=== PATIENT | male | born 1965 | race Caucasian/White ===

== ENCOUNTER → 2023-09-14 11:45 | Outpatient (REF) | payer OTHER, SELFPAY | LOC: HWRAD 11:45 | PROVIDERS: ATTENDING PHYSICIAN Physician Assistant Medical | DX: R10.33 Periumbilical pain (principal); R63.4 Abnormal weight loss; R10.9 Unspecified abdominal pain | CPT/HCPCS: 74177; Q9967 ==

== ENCOUNTER → 2023-10-17 06:28 | Day surgery (SDC) | payer OTHER, SELFPAY | LOC: GI 06:28 | PROVIDERS: ATTENDING PHYSICIAN Internal Medicine Gastroenterology; FAMILY PHYSICIAN Family Medicine | DX: R93.3 Abnormal findings on diagnostic imaging of other parts of digestive tract (principal); K64.8 Other hemorrhoids; K57.30 Diverticulosis of large intestine without perforation or abscess without bleeding; K63.3 Ulcer of intestine; K52.9 Noninfective gastroenteritis and colitis, unspecified; D12.4 Benign neoplasm of descending colon; K63.5 Polyp of colon; R10.9 Unspecified abdominal pain; K21.00 Gastro-esophageal reflux disease with esophagitis, without bleeding; K29.70 Gastritis, unspecified, without bleeding | CPT/HCPCS: 45385; 45380; 43239; 88305; 88342 ==

== ENCOUNTER 2024-02-08 05:43 | Day surgery (SDC) | payer OTHER, SELFPAY ==
[2024-01-19 07:22] VITALS: BMI 28.6
[2024-01-19 08:58] LABS: Hemoglobin 15.1 g/dL (13.0-18.0); Mean Corp Hgb Conc. 35.1 g/dL (33.0-37.0); Mean Corpuscular Hgb 31.9 pg (27.0-31.0); Mean Corpuscular Volume 90.7 fL (80.0-94.0); Mean Platelet Volume 9.2 fL (7.4-10.4); Platelet Count 289 10^3/uL (130-400); Red Blood Cell Count 4.74 10^6/uL (4.70-6.10); Red Cell Dist. Width 12.7 % (11.5-14.5); White Blood Cell Count 5.8 10^3/uL (4.8-10.8)
[2024-01-19 09:26] LABS: ALT (SGPT) 34 U/L (0-50); AST (SGOT) 32 U/L (17-59); Albumin 4.5 g/dl (3.5-5.0); Alkaline Phosphatase 76 U/L (38-126); Blood Urea Nitrogen 13 mg/dl (9-20); Calcium 9.6 mg/dl (8.4-10.2); Carbon Dioxide 22 mmol/L (22-30); Chloride 102 mmol/L (98-107); Estimated Creatinine Clearance 101 ml/min; Glucose 85 mg/dl (70-99); Potassium 4.6 mmol/L (3.5-5.1); Sodium 141 mmol/L (135-145); Total Bilirubin 0.5 mg/dl (0.2-1.3); Total Protein 7.1 g/dl (6.3-8.2); eGFR > 60.00
[2024-01-19 10:00] LABS: Glycohemoglobin (HgbA1c) 5.4 % (4.0-5.6)
--- NOTE | 2024-01-26 10:23 | VNURNOTE ---
Patient is scheduled for an elective L TKR on 02/08/24- he is a same day patient. Spoke with patient prior to surgery. Introduced role of [facility]N liaison.
Patient reports that he lives with his son in a MULTI story home. His son works [employer] but will be available day of surgery and 3 days post op.
There are 2 steps to enter the porch then 11 HANY floor he'll be staying on.
He currently functions independently.
DME he has: rolling walker, raised toilet seat.
DME he will obtain: cane, hospital bed through [employer] (patient paying out of pocket per his preference)
He has never had [facility]N services.
PCP is Dr Walkre/ Dr Aurleia Frazier
Discussed [facility] joint protocol/orthopedic program and post surgical plans.
Reviewed that he will have VN services initially and will then start outpatient PT.
Patient selects VN for his home care needs and will go to for outpatient PT. Outpt PT scheduled for 02/11
Patient is in agreement with plan and states that his son will be home with him. Advised patient to bring RW with him day of surgery.
Referral placed in [facility]
Plan: [facility] joint protocol then outpt PT at
[2024-02-01 08:44] VITALS: BMI 28.6
[2024-02-08] VITALS (11 sets, daily range): BP systolic 109–149; BP diastolic 73–94; PULSE 75; O2SAT 100; BMI 28.6
[2024-02-08] MEDS: CELEBREX 200 MG PO (06:34)
[2024-02-08] MEDS: TYLENOL 650 MG PO (06:34)
[2024-02-08] MEDS: NORMOSOL-R/PLASMALYTE-A 1000 IV (10:25)
[2024-02-08] MEDS: ROXICODONE 5 MG PO (12:52)
== END 2024-02-08 13:25 | disposition home health service (06) ==
LOC: SDS 05:43
PROVIDERS: ATTENDING PHYSICIAN Orthopaedic Surgery; FAMILY PHYSICIAN Family Medicine
DX: M17.12 Unilateral primary osteoarthritis, left knee (principal)
CPT/HCPCS: 27447; C1776; 36415; 73560; 80053; 83036; 85027; 87070; 93005; 97162

== ENCOUNTER 2024-02-14 06:19 | Outpatient (RCR) | payer OTHER, SELFPAY | END 2024-02-14 23:59 | disposition home or self-care (01) | LOC: RPT 06:19 | PROVIDERS: ATTENDING PHYSICIAN Orthopaedic Surgery; FAMILY PHYSICIAN Family Medicine | DX: Z47.1 Aftercare following joint replacement surgery (principal); Z96.652 Presence of left artificial knee joint; Z73.6 Limitation of activities due to disability | CPT/HCPCS: 88305; 97010; 97110; 97140; 97161 ==

== ENCOUNTER → 2024-02-16 12:00 | Outpatient (REF) | payer OTHER, SELFPAY | LOC: DHSLP 12:00 | PROVIDERS: ATTENDING PHYSICIAN Family Medicine | DX: G47.33 Obstructive sleep apnea (adult) (pediatric) (principal) | CPT/HCPCS: 95800 ==

== ENCOUNTER → 2024-02-27 10:10 | Outpatient (REF) | payer OTHER, SELFPAY | LOC: HWRAD 10:10 | PROVIDERS: ATTENDING PHYSICIAN Family Medicine | DX: Z87.891 Personal history of nicotine dependence (principal) | CPT/HCPCS: 71271 ==

== ENCOUNTER → 2024-03-05 07:13 | Outpatient (REF) | payer OTHER, SELFPAY | LOC: RCS 07:13 | PROVIDERS: ATTENDING PHYSICIAN Family Medicine | DX: I10 Essential (primary) hypertension (principal); I50.9 Heart failure, unspecified | CPT/HCPCS: 93306 ==

== ENCOUNTER 2024-03-13 07:48 | Outpatient (RCR) | payer OTHER, SELFPAY | END 2024-03-13 23:59 | disposition home or self-care (01) | LOC: RPT 07:48 | PROVIDERS: ATTENDING PHYSICIAN Orthopaedic Surgery; FAMILY PHYSICIAN Family Medicine | DX: Z47.1 Aftercare following joint replacement surgery (principal); Z73.6 Limitation of activities due to disability; R26.2 Difficulty in walking, not elsewhere classified; M62.81 Muscle weakness (generalized); Z96.652 Presence of left artificial knee joint | CPT/HCPCS: 97010; 97110; 97140 ==

== ENCOUNTER 2024-04-08 07:23 | Outpatient (RCR) | payer OTHER, SELFPAY | END 2024-04-08 23:59 | disposition home or self-care (01) | LOC: RPT 07:23 | PROVIDERS: ATTENDING PHYSICIAN Orthopaedic Surgery; FAMILY PHYSICIAN Family Medicine | DX: Z47.1 Aftercare following joint replacement surgery (principal); Z73.6 Limitation of activities due to disability; R26.2 Difficulty in walking, not elsewhere classified; M62.81 Muscle weakness (generalized); Z96.652 Presence of left artificial knee joint | CPT/HCPCS: 97010; 97110; 97112; 97140; 97530 ==

== ENCOUNTER 2024-04-11 06:04 | Day surgery (SDC) | payer OTHER, SELFPAY ==
[2024-04-11] VITALS (15 sets, daily range): BP systolic 112–147; BP diastolic 55–95
[2024-04-11] MEDS: NORMOSOL-R/PLASMALYTE-A 1000 IV (06:44)
[2024-04-11] MEDS: TYLENOL 1000 MG PO (06:45)
--- NOTE | 2024-04-11 07:23 | W.SUR.PREOP ---
Pre-Operative Surgical Note
-
I have examined this patient prior to the performance of the scheduled procedure.
The patient's condition is unchanged from the time of the current History and
Physical and the patient is able to undergo the scheduled procedure.
--- NOTE | 2024-04-11 07:24 | HP.FOC2 ---
Focused History & Physical
Chief Complaint
HPI:
Chief Complaint: Recurrent right inguinal hernia
HPI / Indication for Planned Procedure: Robotic recurrent right inguinal hernia repair with mesh, possible left, possible open umbilical hernia repair with mesh.
Relevant Past Medical History: Negative
Relevant Social History: Negative
Relevant Family History: Negative
Relevant Past Surgical History: Positive for (Open right inguinal hernia repair)
Review of Systems
Review of Pertinent Systems: All Systems Negative
Medication
See Medication form for detailed medications: Yes
Medication List (including Herbals & OTC):
atorvastatin 10 mg tablet 20 mg PO DAILY 01/07/15
fluticasone fur. 200 mcg-umeclid 62.5 mcg-vilant 25 mcg inhalat.powder (Trelegy Ellipta) 1 inh inhalation DAILY 09/19/22
mecobalamin (vitamin B12) 1,000 mcg chewable tablet 1,000 mcg PO DAILY 02/01/24
oxycodone 5 mg tablet 5 - 10 mg (1 - 2 x 5 mg) PO Q6H PRN moderate-severe pain #30 tabs 02/08/24
verapamil 360 mg 24 hr capsule,extended release 360 mg PO DAILY #1 cap 02/08/24
acetaminophen 500 mg tablet 1,000 mg PO PRN PRN discomfort 04/03/24
albuterol sulfate 90 mcg/actuation aerosol inhaler 1 puff inhalation DAILY 04/03/24
aspirin 81 mg tablet,delayed release 81 mg PO DAILY 04/03/24
Medications Reviewed: Yes
Allergies and Reactions
Patient has Allergies: No
Noted Allergies and Reactions:
Allergy/AdvReac Type Severity Reaction Status Date / Time
No Known Allergies Allergy Verified 04/11/24 06:25
Pertinent Physical Exam
All Other Systems: Negative
Head/Neck: Normal
Diagnosis / Assessment
Recurrent right inguinal hernia. Umbilical hernia.
Plan / Procedure
Robotic recurrent right inguinal hernia repair with mesh, possible left, possible open umbilical hernia repair with mesh.
Anesthesia/Sedation to be done by Anesthesia Provider: Yes
--- NOTE | 2024-04-11 10:04 | W.IMMPOSTOP ---
Surgical Immed Post Op Note
-
Primary Surgeon: Miquel Valero MD
Assisting Surgeon: None
Pre-op Diagnosis: Recurrent right inguinal hernia, umbilical hernia
Post-op Diagnosis: Recurrent right femoral hernia, umbilical hernia
Procedure Performed:
1. Robotic recurrent right femoral hernia repair with mesh.
2. Robotic umbilical hernia repair with mesh (MARCOS approach)
Anesthesia Type: General
Specimen / Cultures: None
Estimated Blood Loss: 1 cc
Complications: [None]
Operative Findings: Femoral defect containing a large amount of preperitoneal fat reduced. There was a small weakness in the direct and indirect spaces as well. After achieving the critical view of the MPO the space was reinforced with a large
right Bard 3D max mid weight uncoated polypropylene mesh. We then turned our attention to the umbilical hernia which was a roughly 1 cm defect containing preperitoneal fat. The defect was closed with a 0 V-Loc 180 suture in the repair was
reinforced with a 6 x 6 cm Bard soft uncoated polypropylene mesh that was secured in the MARCOS space and excluded from the abdominal viscera.
--- NOTE | 2024-04-11 10:07 | OR.RPT ---
Operative Report
Operative Report
Patient Name: Tommie Koo
: 1965
Date of Operation: 04/11/2024
Pre-op Diagnosis: Recurrent right inguinal hernia, umbilical hernia
Post-op Diagnosis: Recurrent right femoral hernia, umbilical hernia
Procedure Performed:
1. Robotic recurrent right femoral hernia repair with mesh.
2. Robotic umbilical hernia repair with mesh (MARCOS approach)
Surgeon(s):
Dr. Valero
Poker Room Manager(s):
EDUARDO Chow
Anesthesia Type: General
Estimated Blood Loss: 3 cc
Urine Output: None
Drains/Lines/Implants: Large 3D Max Bard mid weight uncoated polypropylene mesh
Specimens: None
Indication for surgery: The patient has a history of groin pain and noted on exam to have a right inguinal Hernia in the setting of a previous open repair. He was also noted to have mildly symptomatic umbilical hernia. Following review of
therapeutic options they have elected to undergo a minimally invasive repair.
Operative Findings: Femoral defect containing a large amount of preperitoneal fat reduced. There was a small weakness in the direct and indirect spaces as well. After achieving the critical view of the MPO the space was reinforced with a large
right Bard 3D max mid weight uncoated polypropylene mesh. We then turned our attention to the umbilical hernia which was a roughly 1 cm defect containing preperitoneal fat. The defect was closed with a 0 V-Loc 180 suture in the repair was
reinforced with a 6 x 6 cm Bard soft uncoated polypropylene mesh that was secured in the MARCOS space and excluded from the abdominal viscera.
Details of the operation:
The patient was brought to the Operating Room and placed in the supine position with the arms tucked. IV antibiotics were infused and Venodyne stockings placed. Following uneventful induction of general endotracheal anesthesia, an orogastric tube
were placed. The abdomen was prepped and draped in the usual sterile fashion. The abdomen was entered using a Veress technique which required 1 pass, pneumoperitoneum to 15 mmHg was obtained without difficulty. An 8mm trochar was passed through
the abdominal wall roughly 25 cm cephalad to the inguinal canal. We then confirmed that no inadvertent injury was made while passing the trocar or Veress needle. We then placed two additional 8 mm ports in the left upper and right upper quadrants.
We then docked the robot with a Prograsper in the left hand port and monopolar scissors in the right. A small right direct defect could be visualized as well as a small umbilical hernia.. We then began by creating a flap at the level of the ASIS
laterally working our way medially to the medial umbilical fold. Staying onto the peritoneum we were able to circumferentially dissect around the hernia sac and and peel it off of the underlying spermatic cord and testicular vessels, taking care to
preserve them. Medially we identified the midline pubis as well as Andrzej's ligament and ensured to dissect 2 cm below the pubic rim over the bladder. After exposure of the entire myopectineal orifice we identified and reduced: A small sized
indirect inguinal hernia that initiated from the direct space/medial to the inferior epigastrics into the canal, there was a small direct inguinal hernia, and a large femoral hernia containing a significant amount of preperitoneal fat. There was no
cord lipoma
We then fixated a large 3D max mesh with a 2-0 Vicryl stitch at coopers medially x2 and superior laterally x1. The flap was then closed with a running 2-0 barbed monocryl suture ensuring that the tail was cut flush with the medial fat pad so that
no barbs were exposed. During the closure of the flap an Angiocath was inserted and 20 cc of quarter percent Marcaine was instilled. The area in the flap cavity was then evacuated of air confirming that the mesh was flush and there were no folds.
A small rent in the peritoneum was noted and closed with 2-0 Vicryl. We then turned our attention to the umbilical hernia. A preperitoneal flap was initiated in the midline about 4 cm superior to to the umbilical defect and carried either side for
about 4 cm. We stayed in the T STEPHANIE space all the way to the hernia defect which contained preperitoneal fat and was reduced. We continue this inferiorly for an additional 4 cm. A roughly 7 x 7 cm pocket was created. The defect was closed in the
transverse direction with an 0 V-Loc 180 suture. This was then reinforced with a Bard soft uncoated polypropylene mesh that was fixated to the overlying posterior rectus sheath. I small rent was closed with an 0 Vicryl suture. The flap was then
closed with a running 2-0 barbed Monocryl Stratafix. A MARCOS block was performed on either side. All needles and instruments were then removed and the robot was undocked. The abdomen was then desufflated, and pneumoperitoneum evacuated. All skin
sites were then closed with 4-0 Monocryl followed by Dermabond. Counts were correct and overall, the patient tolerated the procedure well and was taken to the Recovery Room postoperatively in stable condition.
I was the attending physician and performed the procedure with assistance of the [employer] above. I was present for all portions of the case, excluding skin closure.
Miquel Valero MD
[2024-04-11] MEDS: DILAUDID 0.25 MG IV (10:12)
[2024-04-11] MEDS: ROXICODONE 5 MG PO (12:59)
== END 2024-04-11 13:10 | disposition home or self-care (01) ==
LOC: SDS 06:04
PROVIDERS: ATTENDING PHYSICIAN Surgery
DX: K40.91 Unilateral inguinal hernia, without obstruction or gangrene, recurrent (principal); K41.90 Unilateral femoral hernia, without obstruction or gangrene, not specified as recurrent; R10.30 Lower abdominal pain, unspecified
CPT/HCPCS: 49651; 49555; C1781

== ENCOUNTER → 2024-07-05 11:56 | Outpatient (REF) | payer OTHER, SELFPAY | LOC: HWRCS 11:56 | PROVIDERS: ATTENDING PHYSICIAN Student in an Organized Health Care Education/Training Program; FAMILY PHYSICIAN Family Medicine | DX: R06.02 Shortness of breath (principal); R00.1 Bradycardia, unspecified | CPT/HCPCS: 78452; 93017; A9500; J2785 ==

== ENCOUNTER → 2024-07-09 15:01 | Outpatient (REF) | payer OTHER, SELFPAY | LOC: RAD 15:01 | PROVIDERS: ATTENDING PHYSICIAN Nurse Practitioner Family; FAMILY PHYSICIAN Family Medicine | DX: R06.09 Other forms of dyspnea (principal) | CPT/HCPCS: 71046 ==